=== PATIENT | female | born 2000 | race African-American/Black ===

== ENCOUNTER 2020-03-11 11:18 | Emergency (ER) | payer BC, SELFPAY ==
--- NOTE | 2020-03-11 11:28 | ED.HA ---
HPI - Headache General Chief Complaint: Headache Stated Complaint: back of Head pain from one side to the other Source: patient Mode of arrival: ambulatory Limitations: no limitations History of Present Illness HPI Narrative: patient is a very nice 19-year-old female who presents to the emergency department with complaints of headache x1 month. Patient states that she has been going through some significant depression recently and has been spending a lot of time laying in her bed. The headache is mostly in the back of her neck, and is reproducible to palpation and movement. She did see a fast worker yesterday and is actively involved in the mental health programs. She is not suicidal homicidal or danger to herself or others. Headache has been going on for quite some time and seems to be worse towards the evening time. Patient also relates she has been having some troubles with her hair falling out, but does mention that she really has not been able to eat much due to the depression. MD elicited complaint: headache Onset description: gradually Location: down into neck Severity: mild Quality & Timing: aching Exacerbating factors: movement of head/neck Relieving factors: nothing Context: occurred at rest Associated symptoms: none Treatments prior to arrival: acetaminophen, ibuprofen and migraine medication Related Data Home Medications Medication Instructions Recorded Confirmed divalproex [Depakote] 250 mg PO Q12H 03/11/20 03/11/20 Allergies Allergy/AdvReac Type Severity Reaction Status Date / Time phenytoin Allergy Unknown Rash Verified 03/11/20 12:13 Review of Systems Constitutional: Constitutional: Reports no additional constitutional complaints Comments: insomina Eyes: Eyes: Denies change in vision and Reports photophobia ENT: Reports system reviewed and no additional complaints, except as documented Cardiovascular: Cardiovascular: Denies as per HPI, Reports no additional cardiovascular complaints, Denies chest pain, Denies rapid heart rate, Denies radiating jaw, neck or arm pain and Denies slow heart rate Respiratory: Respiratory: Denies as per HPI, Reports no additional respiratory complaints, Denies chest congestion, Denies cough, Denies dyspnea and Denies wheezing Gastrointestinal: Gastrointestinal: Denies as per HPI, Denies no additional gastrointestinal complaints, Denies abdominal pain, Denies bloating, Denies constipation, Denies heartburn, Denies diarrhea, Denies nausea and Denies vomiting Genitourinary: Genitourinary: Denies no additional female genitourinary complaints, Denies as per HPI, Denies abnormal vaginal bleeding, Denies hematuria, Denies nocturia, Denies genital lesions, Denies dysuria, Denies pelvic pain, Denies flank pain, Denies urinary incontinence and Denies vaginal discharge Musculoskeletal: Musculoskeletal: Denies no additional musculoskeletal complaints, Denies as per HPI, Denies back pain, Denies myalgias, Denies arthralgias, Denies joint swelling and Denies muscle cramps Neurologic: Denies system reviewed and no additional complaints, except as documented, Denies as per HPI, Denies confusion, Denies vertigo, Denies dizziness, Denies syncope, Denies headache(s), Denies focal weakness, Denies numbness and Denies weakness Psychiatric: Psychiatric: Reports depression, Denies homicidal ideation and Denies suicidal ideation Endocrine: Endocrine: Denies no additional endocrine complaints, Denies as per HPI, Denies excessive sweating, Denies fatigue, Denies polydipsia and Denies polyuria Hematologic/Lymphatic: Hematologic/Lymphatic: Denies no additional hematologic/lymphatic complaints, Denies as per HPI, Denies easy bleeding and Denies easy bruising Allergic/Immunologic: Allergic/Immunologic: Denies no additional allergic/immunologic complaints, Denies as per HPI, Denies lip swelling, Denies throat swelling and Denies wheezing [facility] Social History Social History (Updated 03/11/20 @ 12:06 by Melissa
[2020-03-11 11:30] VITALS: BP 129/78; PULSE 103; RESP 18; TEMP 36.2; O2SAT 98
== END 2020-03-11 12:35 | disposition home or self-care (01) ==
PROVIDERS: Emergency Provider Emergency Medicine
DX: T14.8XXA Other injury of unspecified body region, initial encounter (principal); F32.9 Major depressive disorder, single episode, unspecified
CPT/HCPCS: 99283

== ENCOUNTER 2020-03-21 18:00 | Emergency (ER) | payer BC, SELFPAY ==
--- NOTE | ~2020-03-21 | CT_ITS ---
EXAMINATION: CT brain wo con DATE: 03/21/2020 18:45 INDICATION: Headache. TECHNIQUE: Computed tomography (CT) of the head was performed without intravenous contrast. The mA wa s adjusted according to patient size. Iterative reconstruction technique was employed. The dose-lengt h product was 605.33 mGy-cm. COMPARISON: None FINDINGS: There is no intracranial hemorrhage, acute infarction, or abnormal intracranial mass lesion . The ventricles are normal in size. The orbits are normal. There is mild mucosal thickening in the e thmoid sinuses. The mastoid air cells are normal. IMPRESSION: 1. Normal brain. Reviewed, dictated and finalized at location A. IMPRESSION: 1. Normal brain.
[2020-03-21 18:05] VITALS: BP 119/70; PULSE 109; RESP 16; TEMP 37; O2SAT 100
--- NOTE | 2020-03-21 18:06 | ED.HA ---
HPI - Headache General Chief Complaint: Headache Stated Complaint: dizzy,headache Time Seen by Provider: 03/21/20 18:06 Source: patient and RN notes reviewed Mode of arrival: ambulatory Limitations: no limitations History of Present Illness HPI Narrative: patient was here 10 days ago. At that time she had headache and dizziness. She was treated with some NSAIDs and muscle relaxants. Patient decided to overdose on the muscle relaxants and ended up going to [facility] for the overdose. She was admitted for 3 days. She continues to have dizziness. In the hospital they told her that her dizziness was due to anemia due to her heavy periods. She is currently on some progesterone for 10 days. She says that has not helped. She continues to have dizziness headache. She states that she is not able to eat. MD elicited complaint: headache Onset description: gradually Severity: moderate Quality & Timing: aching and similar to previous headaches Exacerbating factors: movement of head/neck Associated symptoms: other ( Dizziness) Related Data Home Medications Medication Instructions Recorded Confirmed aripiprazole lauroxil [Aristada] 662 mg IM MO 03/21/20 03/21/20 fluoxetine 20 mg PO DAILY 03/21/20 03/21/20 medroxyprogesterone 2.5 mg PO DAILY 03/21/20 03/21/20 trazodone 300 mg PO HS 03/21/20 03/21/20 Allergies Allergy/AdvReac Type Severity Reaction Status Date / Time phenytoin Allergy Unknown Rash Verified 03/21/20 18:21 Review of Systems Review of Systems: All systems reviewed & are unremarkable except as noted in HPI and below PMFSH Social History Social History (Updated 03/11/20 @ 12:06 by Melissa Lala MD) Smoking status: Never smoker Alcohol intake: never Substance use: former Exam Const: General: healthy appearing and no acute distress Nutritional Appearance: well nourished Orientation/consciousness: patient oriented x3 Other: Female nurse in room during examination. HENMT: Head: normal to inspection Ears: external ears normal General nose exam: Normal external nose present Mouth: Yes Normal oral and palatal mucosa present and Yes lip normal Eyes: Conjunctivae: conjunctivae normal Pupils: Equal, round and reactive pupils present EOM: EOMs intact bilaterally Neck: Neck: normal visual inspection Resp: Effort & Inspection: normal respiratory effort Auscultation: clear to auscultation bilaterally Cardio: Rate: regular rate Rhythm: regular rhythm GI: GI Palp: Yes Soft to palpation Auscultation: normal bowel sounds Back/Spine/Pelvis: Cervical Spine: cervical ROM normal Thoracic/Lumbar Spine: thoraco-lumbar ROM normal Skin: General skin exam: normal color Rashes: no rashes Neuro: General: patient oriented x3, moves all extremities and no focal motor deficits Speech: normal speech Gait exam (Neuro): Normal gait present Extrem: General: normal to inspection and no clubbing, cyanosis or edema Psych: Appearance: grossly normal and well kempt Mental Status: mental status grossly normal Speech and movement: Normal speech and movement present Affect: Sad affect present and Indifferent affect present Attitude: cooperative Thought process: Normal thought process present Course Course Emergency Course: patient advised of her results. She was recently admitted [place] for her suicidal ideations /attempt. She had multiple labs done there. At this time I believe her dizziness is benign positional vertigo. I do not see any evidence of severe anemia. If her symptoms persist she is advised follow-up with her primary care physician further testing possible neurology consult. Vital Signs Vital signs: Vital Signs Temperature 37.0 C 03/21/20 18:05 Pulse Rate 109 H 03/21/20 18:05 Respiratory Rate 16 03/21/20 18:05 Blood Pressure 119/70 03/21/20 18:05 Pulse Oximetry 100 03/21/20 18:05 Temperature 37.0 C 03/21/20 18:05 Pulse Rate 100 03/21/20 19:3
[2020-03-21] MEDS: KETOROLAC (*BKC) 60 MG/2 ML VIAL 30 MG IM (18:55)
[2020-03-21] MEDS: MECLIZINE HCL 25 MG TABLET PO (18:56)
[2020-03-21 19:12] LABS: Basophils Absolute Auto 0.03 K/mm3 (0.00-0.10); Basophils Percent Auto 0.5 % (0.0-1.0); Eosinophils Absolute Auto 0.08 K/mm3 (0.02-0.50); Eosinophils Percent Auto 1.3 % (1.0-6.0); Hematocrit 35.4 % (35.0-49.0); Hemoglobin 11.7 g/dL (12.0-15.0); Immature Granulocyte Absolute 0.01 K/mm3 (0.00-0.00); Immature Granulocyte Percent A 0.2 % (0.0-0.0); Lymphocytes Absolute Auto 2.93 K/mm3 (1.10-4.50); Lymphocytes Percent Auto 47.9 % (18.0-42.0); Mean Corpuscular HGB Conc 33.1 g/dL (32.0-36.0); Mean Corpuscular Hemoglobin 27.1 pg (27.0-31.0); Mean Corpuscular Volume 82.1 fL (78.0-102.0); Mean Platelet Volume 11.1 fl (9.2-11.8); Monocytes Absolute Auto 0.57 K/mm3 (0.10-0.90); Monocytes Percent Auto 9.3 % (2.0-11.0); Neutrophils Absolute Auto 2.5 K/mm3 (1.7-7.2); Neutrophils Percent Auto 40.8 % (50.0-70.0); Platelet Count Result 231 K/mm3 (150-420); Red Blood Count 4.31 M/mm3 (4.20-5.40); Red Cell Distribution Width 14.9 % (11.6-14.4); White Blood Count 6.1 K/mm3 (4.8-10.8)
[2020-03-21 19:21] LABS: Anion Gap 10.5 mmol/L (7-16); Blood Urea Nitrogen 19 mg/dL (7-18); Calcium 8.9 mg/dL (8.5-10.1); Carbon Dioxide 27 mmol/L (21-32); Chloride 103 mmol/L (98-108); Estimated Glomerular Filt Rate > 60; Glucose 89 mg/dL (70-99); Osmolality Calculated 285 mOsm/kg (285-295); Potassium 3.5 mmol/L (3.5-5.1); Sodium 137 mmol/L (136-145)
[2020-03-21 19:36] VITALS: BP 118/77; PULSE 100; RESP 18; O2SAT 100
== END 2020-03-21 18:36 | disposition home or self-care (01) ==
PROVIDERS: Emergency Provider Emergency Medicine
DX: G44.219 Episodic tension-type headache, not intractable (principal); H81.10 Benign paroxysmal vertigo, unspecified ear
CPT/HCPCS: 36415; 70450; 80048; 85025; 96372; 99284; A9270; J1885

== ENCOUNTER 2020-12-18 10:54 | Emergency (ER) | payer BC, SELFPAY ==
[2020-12-18 11:15] VITALS: BP 117/83; PULSE 85; RESP 14; TEMP 37.1; O2SAT 99
--- NOTE | 2020-12-18 11:15 | ED.PSYCH ---
HPI - Psych General Chief Complaint: Psychiatric Symptoms Stated Complaint: self harm Time Seen by Provider: 12/18/20 11:29 Source: patient Mode of arrival: ambulatory Limitations: no limitations History of Present Illness HPI Narrative: 20-year-old woman has a history of psychiatric illness comes in today complaining of feeling depressed. She states that she has been having thoughts of harming herself and that she hears voices that are telling her to kill herself. She states that she was in [facility] several days ago for a lithium overdose. She states she has had multiple admissions for the same in the past. Her symptoms started about 4 weeks ago she states. complaint: suicidal ideation and feels depressed Onset (ago): week(s) (4) Duration: intermittent History of same: Yes Relieving factors: none Exacerbating factors: none Context: not taking psychiatric medications Associated psychiatric symptoms: depression, suicidal ideation and auditory hallucinations Treatments prior to arrival: none If self harm: admits thoughts of self harm Details of plan: Taking overdose of medication Related Data Home Medications Medication Instructions Recorded Confirmed No Home Medications 12/18/20 12/18/20 Allergies Allergy/AdvReac Type Severity Reaction Status Date / Time phenytoin Allergy Unknown Rash Verified 03/21/20 18:21 Review of Systems Constitutional: Constitutional: Denies chills, Denies fever(s) and Denies weakness Eyes: Eyes: Denies change in vision and Denies photophobia ENT: Denies nasal congestion and Denies sore throat Cardiovascular: Cardiovascular: Denies chest pain and Denies radiating jaw, neck or arm pain Respiratory: Respiratory: Denies cough, Denies dyspnea and Denies wheezing Gastrointestinal: Gastrointestinal: Denies abdominal pain, Denies nausea and Denies vomiting (black stools) Genitourinary: Genitourinary: Denies nocturia and Denies dysuria Musculoskeletal: Musculoskeletal: Denies back pain, Denies arthralgias and Denies joint swelling Integumentary/Breasts: Skin/Breast: Denies pruritus, Denies erythema and Denies rash Neurologic: Denies vertigo, Denies dizziness, Denies syncope, Denies headache(s), Denies focal weakness and Denies numbness Psychiatric: Psychiatric: Reports as per HPI, Reports depression and Reports suicidal ideation Hematologic/Lymphatic: Hematologic/Lymphatic: Denies easy bleeding and Denies easy bruising Allergic/Immunologic: Allergic/Immunologic: Denies throat swelling and Denies tongue swelling PMFSH Past Medical History Medical History (Updated 12/18/20 @ 15:13 by Gorge Menjivar MD) Depressed Endometriosis Social History Social History Smoking status: Never smoker Alcohol intake: never Substance use: former Substance use type: does not use Exam Const: General: healthy appearing, no acute distress and alert Orientation/consciousness: patient oriented x3 Limitations: no limitations Other: Calm, sitting by significant other. HENMT: Head: normal to inspection Mouth: Yes moist mucous membranes abnormal Teeth and gingiva: abnormal tooth and associated gingiva Eyes: Conjunctivae: conjunctivae normal Pupils: Equal, round and reactive pupils present EOM: EOMs intact bilaterally Direct Ophthalmoscopy: No photophobia Resp: Effort & Inspection: normal respiratory effort and no retractions Auscultation: clear to auscultation bilaterally, no rales, no rhonchi and no wheezes Cardio: Rate: regular rate Rhythm: regular rhythm Skin: General skin exam: normal color, no jaundice and no pallor Rashes: no rashes Neuro: General: patient oriented x3, moves all extremities, no focal motor deficits and CN's II-XI intact bilaterally Speech: normal speech Gait exam (Neuro): Normal gait present Extrem: General: normal to inspection and no clubbing, cyanosis or edema Psych: Appearanc
[2020-12-18 12:21] LABS: Basophils Absolute Auto 0.03 K/mm3 (0.00-0.10); Basophils Percent Auto 0.5 % (0.0-1.0); Eosinophils Absolute Auto 0.06 K/mm3 (0.02-0.50); Eosinophils Percent Auto 0.9 % (1.0-6.0); Hematocrit 32.8 % (35.0-49.0); Hemoglobin 10.3 g/dL (12.0-15.0); Immature Granulocyte Absolute 0.02 K/mm3 (0.00-0.00); Immature Granulocyte Percent A 0.3 % (0.0-0.0); Lymphocytes Absolute Auto 2.87 K/mm3 (1.10-4.50); Lymphocytes Percent Auto 43.6 % (18.0-42.0); Mean Corpuscular HGB Conc 31.4 g/dL (32.0-36.0); Mean Corpuscular Hemoglobin 23.3 pg (27.0-31.0); Mean Platelet Volume 9.7 fl (9.2-11.8); Monocytes Absolute Auto 0.64 K/mm3 (0.10-0.90); Monocytes Percent Auto 9.7 % (2.0-11.0); Platelet Count Result 232 K/mm3 (150-420); Red Blood Count 4.43 M/mm3 (4.20-5.40); Red Cell Distribution Width 23.9 % (11.6-14.4); White Blood Count 6.6 K/mm3 (4.8-10.8)
[2020-12-18 12:21] LABS: Add Urine Microscopic? YES; Appearance Urine Clear (Clear); Bilirubin Urine Negative (Negative); Blood Urine Negative (Negative); Color Urine Yellow (Yellow); Glucose Urine UA Negative (Negative); Ketones Urine Negative (Negative); Leukocyte Esterase Ur Trace LEU/UL (Negative); Nitrate Urine Negative (Negative); Protein Urine Negative (Negative); Specific Grav Ur 1.015 (1.010-1.020); Urobilinogen Urine 0.2 mg/dL (0.2-1.0); pH Urine 6.5 (5.0-8.0)
[2020-12-18 12:25] LABS: Bacteria Urine 1+ /hpf; RBC Urine 0-2 /hpf (0-2); Squamous Epithelial Cell Urine Moderate /hpf (Few)
[2020-12-18 12:26] LABS: Pregnancy On Board Control Positive; Urine Pregnancy Test Negative
[2020-12-18 12:40] LABS: Alanine Aminotransferase 32 U/L (14-59); Albumin Level 3.9 g/dL (3.4-5.0); Alkaline Phosphatase 73 U/L (46-116); Anion Gap 11 mmol/L (8-16); Aspartate Amino Transferase 17 U/L (15-37); Bilirubin,Total 0.7 mg/dL (0.00-1.00); Blood Urea Nitrogen 17 mg/dL (7-18); Calcium 9.1 mg/dL (8.5-10.1); Carbon Dioxide 23 mmol/L (21-32); Chloride 102 mmol/L (98-108); Estimated CRCL calculation 72 ml/min; Estimated Glomerular Filt Rate > 60; Glucose 86 mg/dL (70-99); Osmolality Calculated 282 mOsm/kg (285-295); Potassium 4.2 mmol/L (3.5-5.1); Salicylate 0.3 mg/dL (2.8-20.0); Sodium 136 mmol/L (136-145); Total Protein 7.7 g/dL (6.4-8.2)
[2020-12-18 12:41] LABS: Acetaminophen < 2 ug/mL (10-30); Ethanol < 3 mg/dL (0-6)
[2020-12-18 13:18] VITALS: BP 111/65; PULSE 60; RESP 14; TEMP 36.7; O2SAT 100
--- NOTE | 2020-12-18 14:51 | PC.NURSE ---
pt is calm and cooperative at this time. soft wrist restraints removed and meal provided.
[2020-12-18 16:07] LABS: SARS-CoV-2 Ag Negative (Negative)
[2020-12-18 18:11] LABS: Amphetamine Screen Urine Negative (Negative); Barbiturate Screen Urine Negative (Negative); Benzodiazepines Screen Urine Negative (Negative); Cannabinoid Screen Urine Negative (Negative); Cocaine Screen Urine Negative (Negative); Methadone Screen Urine Negative (Negative); Opiate Screen Urine Negative (Negative); Phencyclidine Screen Urine Negative (Negative)
[2020-12-18 19:32] VITALS: BP 142/71; PULSE 84; RESP 12; O2SAT 100
[2020-12-18] MEDS: NITROFURANTOIN MONOHYD MACROCR 100 MG CAP PO (22:11)
--- NOTE | 2020-12-18 22:11 | PC.NURSE ---
report provided to [facility]
--- NOTE | 2020-12-18 22:16 | PC.NURSE ---
Pt. noted resting/sleeping and in close observation c camera on. See continuous suicide Obs. flowsheet.
--- NOTE | 2020-12-19 00:22 | PC.NURSE ---
Pt. sleeping, close monitor observation c camera on and sitter. See obs flowsheet.
--- NOTE | 2020-12-19 00:40 | PC.NURSE ---
Pt. awake and wanting snack, snack food provided by [facility]. Pt. then c/o feeling nauseated. Order obtained from [facility] for med. Pt. sipping white soda only for nausea, resting, VSS.
[2020-12-19 00:48] VITALS: BP 114/69; PULSE 87; RESP 18; TEMP 36.8; O2SAT 99
[2020-12-19] MEDS: ONDANSETRON HCL ODT 4 MG TABLET PO (00:48)
--- NOTE | 2020-12-19 02:00 | PC.NURSE ---
Pt. sleeping, no changes, pt. monitored under close observation.
--- NOTE | 2020-12-19 04:00 | PC.NURSE ---
No changes, pt. sleeping.
--- NOTE | 2020-12-19 06:15 | PC.NURSE ---
No changes, pt. sleeping.
--- NOTE | 2020-12-19 07:25 | PC.NURSE ---
PT CARE IS ASSUMED AT THIS TIME. PT IS SLEEPING, EVEN NON-LABORED RESPIRATIONS - WILL EVALUATE WHEN AWAKE - AWAITING [facility] BED AVAILABILITY
[2020-12-19 08:17] VITALS: BP 114/79; PULSE 94; RESP 16; TEMP 37.1; O2SAT 98
--- NOTE | 2020-12-19 09:29 | PC.NURSE ---
RECEIVED CALL FROM [facility] [address] DEPARTMENT OF SOCIOLOGY CHAIR - STILL AWAITING BED PLACEMENT
--- NOTE | 2020-12-19 11:02 | PC.NURSE ---
CHART FAXED TO [facility] [phone] - PT IS UPDATED O F STATUS - VOICES NO CONCERNS AT THIS TIME
--- NOTE | 2020-12-19 11:34 | PC.NURSE ---
PT CONDITION REMAINS UNCHANGED - PT STATES THAT SHE WAS TAKEN OFF OF HER MEDICATIONS DURING HER LAST HOSPITAL VISIT. PT STATES THAT SHE THINKS THAT IS WHAT IS WRONG WITH HER. CHART IS ALSO SENT TO [facility]) IN HOPES THAT SOMEONE MAY HAVE A BED BECOME AVAILABLE - PT CALM AND COOPERATIVE
[2020-12-19] MEDS: NITROFURANTOIN MONOHYD MACROCR 100 MG CAP PO (13:19)
--- NOTE | 2020-12-19 13:21 | PC.NURSE ---
PATIENT BEHAVES AND IS ABLE TO HAVE BOYFRIEND BACK FOR A VISIT - UPDATED STATUS GIVEN TO [facility]. PT DENIES ANY C/O AT THIS TIME
--- NOTE | 2020-12-19 13:56 | PC.NURSE ---
[facility]
[2020-12-19 14:09] VITALS: BP 111/79; PULSE 90; RESP 15; TEMP 36.7; O2SAT 99
[2020-12-19] MEDS: ACETAMINOPHEN 500 MG TABLET 1000 MG PO (14:11)
--- NOTE | 2020-12-20 05:02 | ED.PSYCH ---
HPI - Psych General Source: patient Mode of arrival: ambulatory Limitations: no limitations History of Present Illness HPI Narrative: Patient is continuing to be held here in ER waiting placement in a psychiatric facility due to suicidal ideation as previously stated. Related Data Home Medications Medication Instructions Recorded Confirmed No Home Medications 12/18/20 12/18/20 Allergies Allergy/AdvReac Type Severity Reaction Status Date / Time phenytoin Allergy Unknown Rash Verified 03/21/20 18:21 Review of Systems Constitutional: Constitutional: Reports no additional constitutional complaints Eyes: Eyes: Reports no additional eye complaints Cardiovascular: Cardiovascular: Reports no additional cardiovascular complaints Respiratory: Respiratory: Reports no additional respiratory complaints Gastrointestinal: Gastrointestinal: Reports no additional gastrointestinal complaints Musculoskeletal: Musculoskeletal: Reports no additional musculoskeletal complaints Integumentary/Breasts: Skin/Breast: Reports system reviewed and no additional complaints, except as docu Neurologic: Reports system reviewed and no additional complaints, except as documented Psychiatric: Psychiatric: Reports no additional psychiatric complaints Endocrine: Endocrine: Reports no additional endocrine complaints Hematologic/Lymphatic: Hematologic/Lymphatic: Reports no additional hematologic/lymphatic complaints Allergic/Immunologic: Allergic/Immunologic: Reports no additional allergic/immunologic complaints [facility] Past Medical History Medical History (Updated 12/20/20 @ 05:11 by Salvador Cheung MD) Depressed Endometriosis Surgical History Surgical History (Updated 12/20/20 @ 05:06 by Salvador Cheung MD) No significant past surgical history Family History Family History Mother No problems noted. Social History Social History Smoking status: Never smoker Alcohol intake: never Substance use: former Substance use type: does not use Exam Const: General: no acute distress and alert Orientation/consciousness: patient oriented x3 HENMT: Head: normal to inspection Ears: external ears normal General nose exam: Normal external nose present Eyes: Conjunctivae: conjunctivae normal Neck: Neck: normal visual inspection Chest: Chest palpation & inspection: normal inspection of the chest Resp: Effort & Inspection: normal respiratory effort Auscultation: clear to auscultation bilaterally Cardio: Rate: regular rate Rhythm: regular rhythm GI: GI Palp: Yes Soft to palpation (nontender) Skin: General skin exam: normal color Neuro: General: patient oriented x3 Extrem: General: normal to inspection Psych: Appearance: grossly normal Attitude: cooperative Thought content: Yes Suicidality present Course Course Emergency Course: She has been much more cooperative today. Placement was eventually obtained at a facility in [place]. Plan transfer as soon as possible. Vital Signs Vital signs: Vital Signs Temperature 37.1 C 12/18/20 11:15 Pulse Rate 85 12/18/20 11:15 Respiratory Rate 14 12/18/20 11:15 Blood Pressure 117/83 12/18/20 11:15 Pulse Oximetry 99 12/18/20 11:15 Temperature 36.7 C 12/19/20 14:09 Pulse Rate 90 12/19/20 14:09 Respiratory Rate 15 12/19/20 14:09 Blood Pressure 111/79 12/19/20 14:09 Pulse Oximetry 99 12/19/20 14:09 Transfer Transfered to: Other ([facility]) Transportation: BLS MDM - Psych Differential Diagnosis Differential diagnosis: Likely suicidal ideation Lab Data Result diagrams: 12/18/20 12:15 12/18/20 12:15 Labs: Lab Results 12/18/20 12/18/20 12/18/20 Range/Units 11:43 12:15 12:15 WBC 6.6 (4.8-10.8) K/mm3 RBC 4.43 (4.20-5.40) M/mm3 Hgb 10.3 L (12.0-15.0) g/dL Hct 32.8 L (35.
[2020-12-20 15:36] LABS: Lithium <0.15 mmol/L (0.60-1.20)
== END 2020-12-19 14:42 ==
PROVIDERS: Emergency Medicine; Emergency Provider Emergency Medicine
DX: R45.851 Suicidal ideations (principal); R44.0 Auditory hallucinations
CPT/HCPCS: 36415; 80053; 80178; 80307; 81001; 81025; 84443; 85025; 87077; 87086; 87088; 87426; 99285; A9270; C9803

== ENCOUNTER 2023-08-31 21:19 | Emergency (ER) | payer BC, SELFPAY ==
[2023-08-31 22:46] VITALS: BP 120/76; PULSE 96; RESP 15; TEMP 36.9; O2SAT 99
[2023-09-01 03:28] VITALS: O2SAT 100
[2023-09-01 03:30] VITALS: BP 125/92; O2SAT 100
[2023-09-01 03:31] VITALS: O2SAT 100
[2023-09-01 03:50] LABS: Basophils Percent Auto 0.3 % (0.2-1.2); Eosinophils Absolute Auto 0.1 K/mm3 (0-0.3); Eosinophils Percent Auto 1.4 % (0-4.4); Hematocrit 32.9 % (37.0-47.0); Hemoglobin 10.1 g/dL (12.0-15.0); Immature Granulocyte Absolute 0.01 K/mm3 (0.00-0.031); Immature Granulocyte Percent A 0.2 % (0-0.5); Lymphocytes Absolute Auto 3.32 K/mm3 (0.9-3.2); Lymphocytes Percent Auto 51.6 % (18.3-44.2); Mean Corpuscular HGB Conc 30.7 g/dl (32-36); Mean Corpuscular Hemoglobin 25.1 pg (26-34); Mean Corpuscular Volume 81.6 fl (80-100); Mean Platelet Volume 10.8 fl (7.4-10.4); Monocytes Absolute Auto 0.7 K/mm3 (0.1-0.6); Monocytes Percent Auto 10.4 % (2.6-8.5); Neutrophils Absolute Auto 2.3 K/mm3 (1.3-6.7); Neutrophils Percent Auto 36.1 % (45.5-73.1); Platelet Count Result 229 k/mm3 (150-375); Red Blood Count 4.03 M/mm3 (4.2-5.4); Red Cell Distribution Width 16.8 % (11.5-14.5); White Blood Count 6.4 K/mm3 (4.5-10.0)
--- NOTE | 2023-09-01 03:51 | ED.NAVMDI ---
HPI - Nausea/Vomiting/Diarrhea General Chief complaint: Nausea/Vomiting/Diarrhea Stated complaint: n/v Time Seen by Provider: 09/01/23 03:20 History of Present Illness HPI Narrative: Patient is a 23-year-old female who presents to the emergency department this morning complaining of nausea, vomiting and nonspecific abdominal pain. Patient states that she has been having these symptoms for the past week and states that any time she tries to drink or eat anything she vomits it back up. Patient admits that she has had similar symptoms in the past and they were not able to figure out what was causing them. Patient has seen a social worker clinical in the past who could not figure out the reasons behind her symptoms. she denies any marijuana use and denies any history of cyclical vomiting syndrome. Patient also denies any chance of . Patient denies any chest pain, shortness of breath, dysuria, hematuria, constipation, diarrhea, melena, hematochezia, fevers or chills. Patient also denies any headaches, dizziness, lightheadedness, blurry visions, focal weakness, numbness and or tingling. There are no other modifying, alleviating, or precipitating factors at this time. Related Data Allergies Allergy/AdvReac Type Severity Reaction Status Date / Time phenytoin Allergy Unknown Rash Verified 09/01/23 03:39 Review of Systems Review of Systems: All systems are reviewed and are negative unless stated otherwise in the HPI. [facility] Past Medical History Medical History Depressed Endometriosis Surgical History Surgical History No significant past surgical history Family History Family History Mother No problems noted. Social History Social History Smoking status: Never smoker Alcohol intake: never Substance use: former Substance use type: does not use Exam Narrative: General: Alert, awake, afebrile, in no acute distress. HEENT: PERRL, no rhinorrhea, no post nasal drip, oropharynx clear. Neck: Trachea midline, no JVD, no lymphadenopathy. Cardiovascular: Regular rate and rhythm, no murmurs, rubs or gallops, no peripheral edema. Respiratory: Clear to auscultation bilaterally, no tachypnea, no wheezing, no rhonchi, no rubs, no respiratory distress. Abdomen: Soft, nontender, nondistended, no rebound, no guarding, no peritoneal signs. Musculoskeletal: No joint swelling or deformity, normal muscle tone. Skin: No rashes or petechia, no signs of infection. Psychiatric: Alert and oriented, normal behavior and judgment for situation. Neurological: Alert and oriented to person, place, and time. Follows all commands. No focal deficits, speech is clear and fluent. Course Vital Signs Vital signs: Vital Signs Temperature 98.4 F 08/31/23 22:46 Pulse Rate 96 08/31/23 22:46 Respiratory Rate 15 08/31/23 22:46 Blood Pressure 120/76 08/31/23 22:46 Pulse Oximetry 99 08/31/23 22:46 Oxygen Delivery Room Air 08/31/23 22:46 Temperature 98.4 F 08/31/23 22:46 Pulse Rate 96 08/31/23 22:46 Respiratory Rate 15 08/31/23 22:46 Blood Pressure 125/92 H 09/01/23 03:30 Pulse Oximetry 100 09/01/23 04:39 Oxygen Delivery Room Air 08/31/23 22:46 MDM - Nausea/Vomiting/Diarrhea MDM Narrative Medical decision making narrative: The patient was evaluated by myself in the emergency department. History is obtained from patient who is an independent historian and physical exam was performed. External medical records were reviewed at this time. IV was established and pertinent tests were ordered. Patient was administered patient was administered a 1 L fluid bolus with normal saline and 4 mg of IV Zofran. Laboratory results obtained revealing no acute process. Urinalysis revea
[2023-09-01] MEDS: SODIUM CHLORIDE 0.9% IV 1,000 ML 999 ML IV CONT (03:56)
[2023-09-01] MEDS: ONDANSETRON INJ 4 MG/2 ML VIAL IV PUSH (03:57)
[2023-09-01 04:02] LABS: Alanine Aminotransferase 18 U/L (6-35); Alkaline Phosphatase 60 U/L (38-126); Anion Gap 8 mmol/L (8-16); Aspartate Amino Transferase 24 U/L (14-36); Blood Urea Nitrogen 11 mg/dL (7-17); Calcium 9.2 mg/dL (8.4-10.2); Carbon Dioxide 23 mmol/L (22-30); Chloride 107 mmol/L (98-107); Estimated CRCL calculation 115 ml/min; Estimated Glomerular Filt Rate > 60; Glucose 87 mg/dL (65-110); Lipase 63 U/L (23-300); Potassium 3.5 mmol/L (3.4-5.0); Sodium 138 mmol/L (137-145)
[2023-09-01 04:23] LABS: Appearance Urine Cloudy (Clear); Bacteria Urine 3+ /hpf; Bilirubin Urine Negative (Negative); Blood Urine Negative (Negative); Color Urine Dark Yellow (Yellow); Glucose Urine UA Negative (Negative); Ketones Urine 3+ mg/dL (Negative); Leukocyte Esterase Ur Negative LEU/UL (Negative); Mucus Urine Present /lpf; Need Manual Microscopic Reviewed; Nitrate Urine Negative (Negative); Protein Urine Trace mg/dL (Negative); RBC Urine 0-2 /hpf (0-2); Specific Grav Ur 1.033 (1.001-1.035); Squamous Epithelial Cell Urine Moderate /hpf (Few); Transitional Epi Cells Urine Present /hpf (None Seen); pH Urine 5.5 (5.0-9.0)
[2023-09-01 04:24] LABS: Add Urine Microscopic? YES
[2023-09-01 04:25] LABS: SPREG INTERNAL CONTROL Positive; Serum Qual hCG Negative
[2023-09-01 04:26] LABS: Influenza A QL RT-PCR Negative (Negative); Influenza B QL RT-PCR Negative (Negative); SARS-CoV-2 RNA PCR Negative (Negative)
[2023-09-01 04:39] VITALS: O2SAT 100
--- NOTE | 2023-09-01 05:45 | PC.NURSE ---
Patient states she is able to hold down water, requests apple sauce. Apple sauce given upon request for PO challenge.
[2023-09-01 06:04] VITALS: BP 130/96; PULSE 60; RESP 18; O2SAT 100
== END 2023-09-01 06:12 | disposition home or self-care (01) ==
PROVIDERS: Emergency Provider Emergency Medicine
DX: E86.0 Dehydration (principal); K52.9 Noninfective gastroenteritis and colitis, unspecified; F32.A Depression, unspecified
CPT/HCPCS: 36415; 80053; 81001; 82248; 83690; 84703; 85025; 87086; 87088; 87636; 96361; 96374; 99284; J2405; J7030